=== PATIENT | female | born 1970 | race Asian ===

== ENCOUNTER 2017-10-03 14:27 | Emergency (ER) | payer BC ==
[~2017-10-03] VITALS: Ht 157.5 cm; Wt 74.8 kg
[2017-10-03 14:32] VITALS: Ht 157.5 cm; Wt 74.8 kg
[2017-10-03 17:24] VITALS: BP 100/73
== END 2017-10-03 17:25 | disposition home or self-care (01) ==
LOC: ED 14:27
DX: I16.0 Hypertensive urgency (principal); G44.209 Tension-type headache, unspecified, not intractable; F31.9 Bipolar disorder, unspecified; Z88.0 Allergy status to penicillin
CPT/HCPCS: J0780; J1885